=== PATIENT | male | born 1955 | race American Indian/Alaskan Native ===

== ENCOUNTER 2020-12-24 11:38 | Emergency (ER) | payer SELFPAY ==
[2020-12-24 12:24] VITALS: BP 122/92
[2020-12-24] MEDS ORDERED: TETANUS,DIPH,PERTUSS(ACELL) VACCINE 0.5 ML SYRINGE IM ONE (12:24)
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
== END 2020-12-24 14:05 | disposition home or self-care (01) ==
LOC: ED 11:38
DX: T20.10XA Burn of first degree of head, face, and neck, unspecified site, initial encounter (principal); L03.211 Cellulitis of face; Z98.890 Other specified postprocedural states; X08.8XXA Exposure to other specified smoke, fire and flames, initial encounter; Y93.89 Activity, other specified; Y92.89 Other specified places as the place of occurrence of the external cause; Y99.8 Other external cause status
CPT/HCPCS: 90471; 90715; 99281